=== PATIENT | male | born 1985 | race Hispanic/Latino ===

== ENCOUNTER 2018-09-27 19:01 | Emergency (ER) | payer OTHER ==
[2018-09-27 19:30] VITALS: O2SAT 98
[2018-09-27] MEDS ORDERED: Morphine 4 MG/ML VIAL ONE (20:32)
--- NOTE | 2018-09-27 21:02 | ED PDOC ---
HPI: Male Pain Time Seen by Provider: 09/27/18 19:33 Chief Complaint (Nursing): Groin Pain Chief Complaint (Provider): Groin Pain History Per: Patient History/Exam Limitations: no limitations Onset/Duration Of Symptoms: Days (x8) Current Symptoms Are (Timing): Still Present Quality Of Discomfort: "Pain" Associated Symptoms: denies: Fever, Nausea, Vomiting, Diarrhea, Constipation, Urinary Symptoms Additional Complaint(s): 33 year old male who underwent surgery on 09/18 at [facility] for left inguinal hernia and left testicular hydrocele presents to the ED with left testicular pain for x8 days. Hernia surgery was performed by Dr. Medrano and hydrocele was performed by Dr. Khan. He has been experiencing severe pain and swelling to the left testicle since surgery. Swelling has only gone down a l ittle despite rest and pain has not gone down at all. He was prescribed medications for a few days immediately after surgery, but did not anticipate being in pain for this long. Yesterday, he went to urgent care where they advised him to follow up with his Urologist. He was seen by Dr. Khan today who said quickly that he has a hematoma and that he is not allowed to prescribe pain medications due to a licensing issue. Pain is worse with walking and patient is unable to sleep due to throbbing pain. Patient denies any fever, nausea, vomiting, diarrhea, constipation or any urinary symptoms. PMD: none provided Past Medical History Reviewed: Historical Data, Nursing Documentation, Vital Signs Vital Signs: Last Vital Signs Temp 96.7 F L 09/27/18 19:25 Pulse 91 H 09/27/18 19:25 Resp 15 09/27/18 19:25 BP 116/71 09/27/18 19:25 Pulse Ox 98 09/27/18 19:25 - Medical History PMH: Anxiety, Depression, Hypercholesterolemia Denies: Chronic Kidney Disease - Surgical History Surgical History: Appendectomy, Tonsillectomy Other surgeries: left inguinal hernia and left testicular hydrocele surgery - Family History Family History: States: Unknown Family Hx - Immunization History Hx Tetanus Toxoid Vaccination: No Hx Influenza Vaccination: No Hx Pneumococcal Vaccination: No - Home Medications Home Medications: Ambulatory Orders Medication Instructions Recorded Alprazolam [Xanax] 0.5 mg PO PRN PRN 04/21/18 Amphetamine Salt Combination 40 mg PO DAILY 04/21/18 [Adderall] Bacitracin Ointment [Bacitracin] 30 gm TOP BID #1 tube 04/21/18 Cephalexin [Keflex] 500 mg PO BID #10 capsule 04/21/18 Sertraline [Zoloft] 100 mg PO DAILY 04/21/18 Famotidine [Pepcid] 40 mg PO DAILY PRN #30 tab 09/27/18 Ibuprofen [Motrin Tab] 600 mg PO Q8 PRN #60 tab 09/27/18 oxyCODONE/Acetaminophen [Percocet 2 tab PO QID PRN #30 tab 09/27/18 5/325 mg Tab] - Allergies Allergies/Adverse Reactions: Allergies Allergy/AdvReac Type Severity Reaction Status Date / Time No Known Allergies Allergy Verified 09/27/18 19:30 Review of Systems ROS Statement: Except As Marked, All Systems Reviewed And Found Negative Constitutional: Negative for: Fever Gastrointestinal: Negative for: Nausea, Vomiting, Abdominal Pain, Diarrhea, Constipation Genitourinary Male: Positive for: Other (left testicle pain and swelling). Negative for: Dysuria, Frequency, Hematuria Physical Exam - Reviewed Nursing Documentation Reviewed: Yes Vital Signs Reviewed: Yes - Physical Exam Appears: Positive for: In Acute Distress (painful) Head Exam: Positive for: ATRAUMATIC, NORMOCEPHALIC Skin: Positive for: Warm, Dry Gastrointestinal/Abdominal: Positive for: Soft. Negative for: Tenderness, Mass, Guarding, Rebound Male Genital Exam: Positive for: other (left scrotum diffusely swollen and testicle is enlarged, tender and firm. Surgical wound with minimal dehiscence at the center and mild surrounding erythema, no bleeding) Back: Positive for: Normal Inspection. Negative for: Decreased ROM Neurological/Psych: Positive for: Awake. Negative for: Motor/Sensory Deficits - Laboratory Results Result Diagrams: 09/27/18 21:20 09/27/18 22:39 - ECG O2 Sat by Pulse Oximetry: 98 (RA) Pulse Ox Interpretation: Normal Medical Decision Making Medical Decision Making: Time: 1955 Impression: post op testicular pain Plan: --CMP --Lact acid --CBC --Morphine --Toradol --Blood culture --UA --US testes EXAM: US Scrotum. CLINICAL HISTORY: Lt testicle severe pain and swelling sp surgery TECHNIQUE: Real-time ultrasound of the scrotum with color Doppler and image documentation. COMPARISON: None provided. FINDINGS: RIGHT TESTICLE: Normal in size and echogenicity, no abnormal mass. Normal Doppler flow. LEFT TESTICLE: Normal in size. The left testicle is heterogeneous in echogenicity; which may indicate orchitis.T here is no abnormal mass detected. Normal Doppler flow. EPIDIDYMIDES: The epididymes are normal in size and demonstrate Doppler flow within normal limits. A 7.1 x 5.7 x 4.8 mm cyst or spermatocele is seen in the head of the left epididymis. SCROTUM: A small right hydrocele is noted. No identification of varicocele, or extratesticular mass seen. Unremarkable. IMPRESSION: 1. Heterogeneity of the left testicular echotexture may indicate orchitis. 2. A 7 x 6 mm cyst or spermatocele is seen in the head of the left epididymis. 3. Small right hydrocele noted. Electronically signed on Sep 27, 2018 9:40:49 PM EDT by: Crescencio Rasheed M.D., M.B.A., Certified By [employer] Trained MRI and CT Specialist DW pt findings. Pt already on antibiotics coverage. On reeval pt feeling better after ER treatment. Advised followup with Dr Khan urgently. ---- ScribeAttestation: Documented byKaitlyn Hoyt, acting as a scribe for Alesha Gill MD. Provider ScribeAttestation: All medical record entries made by the Scribe were at my direction and personally dictated by me. I have reviewed the chart and agree that the record accurately reflects my personal performance of the history, physical exam, medical decision making, and the department course for this patient. I have also personally directed, reviewed, and agree with the discharge instructions and disposition. Disposition - Clinical Impression Clinical Impression: Postoperative pain Counseled Patient/Family Regarding: Rx Given (Reviewed pt's narcotic history on database and he has been given limited prescriptions for acute pain in the past. Discussed risks of dependence/addiction/overdose and reviewed alternatives to opiates.) - Disposition Referrals: Devan Khan MD [Non-Staff] - (FOLLOWUP SCHEDULED WITH DR KHAN) Disposition: Routine/Home Disposition Time: 22:00 Condition: IMPROVED Prescriptions: Famotidine [Pepcid] 40 mg PO DAILY PRN #30 tab PRN Reason: reflux Ibuprofen [Motrin Tab] 600 mg PO Q8 PRN #60 tab PRN Reason: Pain, Moderate (4-7) oxyCODONE/Acetaminophen [Percocet 5/325 mg Tab] 2 tab PO QID PRN #30 tab PRN Reason: Pain Instructions: Opioids for Short-Term Treatment of Pain, Postoperative Pain (DC), Taking Narcotics Safely, Managing Pain After Surgery
[2018-09-27 21:56] LABS: URINE BACTERIA RARE (<OCC); URINE BILIRUBIN NEGATIVE (NEGATIVE); URINE BLOOD NEGATIVE (NEGATIVE); URINE CLARITY CLEAR (Clear); URINE COLOR YELLOW (YELLOW); URINE GLUCOSE (UA) NEG (NEGATIVE); URINE LEUKOCYTE ESTERASE NEG Leu/uL (Negative); URINE PROTEIN NEGATIVE (NEGATIVE); URINE UROBILINOGEN 0.2-1.0 mg/dL (0.2-1.0)
[2018-09-27 21:59] LABS: BASO # 0.1 K/uL (0.0-0.2); BASO % 0.5 % (0.0-2.0); EOS # 0.2 K/uL (0.0-0.7); EOS % 1.3 % (0.0-4.0); HEMOGLOBIN 12.4 g/dL (12.0-18.0); LYMPH # 3.6 K/uL (1.0-4.3); LYMPH % 28.8 % (20.0-40.0); MEAN CORPUSCULAR HEMOGLOBIN 30.3 pg (27.0-31.0); MEAN CORPUSCULAR HGB CONC 33.7 g/dL (33.0-37.0); MEAN PLATELET VOLUME 8.1 fl (7.2-11.7); MONO # 0.7 K/uL (0.0-0.8); MONO % 5.6 % (0.0-10.0); NEUT # 7.9 K/uL (1.8-7.0); NEUT % 63.8 % (50.0-75.0); RBC 4.08 Mil/uL (4.40-5.90); RED CELL DISTRIBUTION WIDTH 13.8 % (11.5-14.5); WHITE BLOOD COUNT 12.4 K/uL (4.8-10.8)
[2018-09-27 23:04] LABS: ALB/GLOB RATIO 1.2 (1.0-2.1); ALBUMIN 4.2 g/dL (3.5-5.0); BLOOD UREA NITROGEN 21 mg/dl (9-20); CALCIUM 9.3 mg/dL (8.4-10.2); GFR NON-AFRICAN AMERICAN > 60
[2018-09-27 23:05] LABS: ALT/SGPT 45 U/L (21-72); AST/SGOT 35 U/L (17-59)
[2018-09-27 23:59] VITALS: BP 124/78; PULSE 72; RESP 18; TEMP 98.1
--- NOTE | 2018-09-28 08:37 | US ---
Date of service: 09/27/2018 HISTORY: LEFT testicle severe pain and swelling sp surgery TECHNIQUE: Realtime sonography through the scrotum with color and doppler flow. COMPARISON: None Available. FINDINGS: RIGHT TESTICLE: Measures 5.3 x 3.5 x 2.5 cm. Normal echotexture and flow. RIGHT EPIDIDYMIS: Epididymal head measures 0.7 x 0.8 x 1.5 cm. Grossly unremarkable appearance with normal flow. LEFT TESTICLE: Measures 4.7 x 3.6 x 2.8 cm. There is moderate increased overall echogenicity and some heterogeneity of the left testicle. No intratesticular mass is seen. LEFT EPIDIDYMIS: Epididymal head measures 0.8 x 1.0 x 1.6 cm. Abnormal increase in heterogeneity and increased vascularity in the left epididymal body and tail region consistent with epididymitis. In addition there is a 6 millimeter x 7 millimeter x 5 millimeter epididymal head cyst. HYDROCELE: Small right hydrocele is noted. VARICOCELE: No definite varicocele is seen. OTHER FINDINGS: Mild scrotal wall thickening is noted on the left. No focal collections are seen to suggest abscess. IMPRESSION: Moderate heterogeneity and increased vascularity of the left epididymis with milder heterogeneity and increased vascularity of the left testicle suggestive of epididymo-orchitis. No focal fluid collection to suggest abscess. Mild left-sided scrotal wall thickening.
== END 2018-09-27 22:54 | disposition home or self-care (01) ==
LOC: H.ER 19:01
DX: G89.18 Other acute postprocedural pain (principal); N50.812 Left testicular pain; Z86.59 Personal history of other mental and behavioral disorders; Z98.890 Other specified postprocedural states
CPT/HCPCS: 80053; 81003; 83605; 85025; 87040; 93975; 96374; 96375; 99283; J1885; J2270